=== PATIENT | male | born 1945 | race Caucasian/White ===

== ENCOUNTER → 2017-12-25 08:30 | Outpatient (CLI) | payer MEDICARE, OTHER, SELFPAY ==
[2017-12-25 09:02] LABS: Cholesterol 124 mg/dL (140-199); HDL Cholesterol 44 mg/dL (40-60); LDL Cholesterol Calculated 57 mg/dL (<100); Triglycerides 115 mg/dL (35-150)
== END ==
PROVIDERS: Visit Provider Internal Medicine Cardiovascular Disease
DX: I25.10 Atherosclerotic heart disease of native coronary artery without angina pectoris (principal)
CPT/HCPCS: 36415; 80061

== ENCOUNTER → 2019-03-25 08:35 | Outpatient (CLI) | payer MEDICARE, OTHER, SELFPAY ==
[2019-03-25 09:57] LABS: Add Manual Diff / Slide Review NO; Basophils Absolute Auto 100 /uL (0-100); Eosinophils Absolute Auto 200 /uL (0-450); Eosinophils Percent Auto 3.1 % (2-4); Hematocrit 44.2 % (41-53); Hemoglobin 14.9 g/dL (13.5-17.5); Lymphocytes Absolute Auto 2500 /uL (1100-4500); Lymphocytes Percent Auto 36.2 % (25-40); Mean Corpuscular HGB Conc 33.8 % (30-36); Mean Corpuscular Hemoglobin 29.7 PG (26-34); Mean Corpuscular Volume 87.9 fL (80-100); Monocytes Absolute Auto 600 /uL (0-900); Monocytes Percent Auto 9.1 % (3-14); Neutrophils Absolute Auto 3500 /uL (1500-7000); Neutrophils Percent Auto 50.6 % (50-75); Platelet Count 226 X10^3/uL (150-400); Red Blood Cell Count 5.02 X10^6/uL (4.5-5.9); Red Cell Distribution Width 13.6 % (11.6-14.8); White Blood Cell Count 6.9 X10^3/uL (4.5-11.0)
[2019-03-25 10:08] LABS: Alanine Aminotransferase 35 IU/L (21-72); Albumin 4.5 g/dL (3.5-5.0); Albumin Globulin Ratio 1.4 (1.0-2.8); Alkaline Phosphatase 54 U/L (38-126); Aspartate Aminotransferase 33 IU/L (17-59); BUN Creatinine Ratio 14.4 (6-22); Bilirubin Total 1.1 mg/dL (0.2-1.3); Blood Urea Nitrogen 13 mg/dL (9-20); Calcium 9.4 mg/dL (8.4-10.2); Carbon Dioxide 28 mmol/L (22-32); Chloride 103 mmol/L (98-107); Estimated Glomerular Filt Rate > 60.0 mL/min (>60); Globulin 3.2 g/dL (1.7-4.1); Glucose 99 mg/dL (80-110); HEMOLYSIS 17 (0-50); Potassium 4.5 mmol/L (3.4-5.1); Sodium 139 mmol/L (137-145); Total Protein 7.7 g/dL (6.3-8.2)
== END ==
PROVIDERS: Visit Provider Internal Medicine Cardiovascular Disease
DX: I25.10 Atherosclerotic heart disease of native coronary artery without angina pectoris (principal)
CPT/HCPCS: 36415; 80053; 85025

== ENCOUNTER → 2019-05-02 06:50 | Outpatient (CLI) | payer MEDICARE, OTHER, SELFPAY ==
--- NOTE | 2019-05-02 | DI.ECHO.S_ITS ---
[place] [facility]---------+ [facility] +---------+ : : [address] : : : : [id number] : : : : Phone: [phone]+ Echocardiogram Report + + :Name: NEREIDA BURKS Study Date: 05/02/2019 Height: 70 in : :[facility] Weight: 242 lb : : Gender: Male BSA: 2.3 m2 : :: 1945 Age: 73 yrs BP: 112/72 mmHg: :Reason For Study: Aortic valve stenosis : :Ordering Physician: Rickie : :Morris Omer Performed By: Angelia Juan : :Referring: Dr. Steve Mcclendon : + + Interpretation Summary The ejection fraction is estimated to be 60-65%. There is severe biatrial enlargement. There is moderate aortic valve sclerosis. There is moderately reduced leaflet mobility. The calculated aortic valve area is 1.4 cm2. There is mild tricuspid regurgitation. Procedure: A two-dimensional transthoracic echocardiogram with color flow and Doppler was performed. The study quality was technically adequate. There is no prior echocardiogram noted for this patient. The patient was in atrial fibrillation with heart rates between 66-77 bpm during the exam. Left Ventricle: The left ventricle is normal in size, wall thickness, and systolic function without any focal wall motion abnormalities. The ejection fraction is estimated to be 60-65%. Left ventricular wall motion is normal. Diastolic function could not be accurately assessed due to atrial fibrillation. Right Ventricle: The right ventricle grossly appears normal in size with probable normal systolic function. Atria: The left atrium is severely dilated. There is severe biatrial enlargement. The right atrium is severely dilated. The interatrial septum is intact with no evidence for an atrial septal defect. Mitral Valve: The mitral valve leaflets appear mildly thickened, but open well. There is trace mitral regurgitation. Aortic Valve: There is moderate aortic valve sclerosis. There is moderately reduced leaflet mobility. The calculated aortic valve area is 1.4 cm2. The aortic valve area is 1.4 centimeters squared by planimetry. The peak aortic velocity is 2.4 m/sec. The aortic valve mean gradient is 12 mmHg. Severity ratio is 0.38. No aortic regurgitation is present. Tricuspid Valve: The tricuspid valve leaflets are thin and pliable. There is mild tricuspid regurgitation. Pulmonic Valve: The pulmonic valve is not well seen, but is grossly normal. There is mild pulmonic regurgitation. Great Vessels: The aortic root is normal size. The ascending aorta is mildly enlarged. The aortic arch is at the upper limits of normal in size. The IVC is of normal diameter and collapses greater than 50% with a sniff. This suggests a low right atrial pressure of 3 mm Hg. Pericardium/ Pleura There is no pericardial effusion. There is no pleural effusion. MMode/2D Measurements & Calculations LVIDd: 4.4 cm LVOT diam: 2.2 cm LVIDs: 2.6 cm Ao root diam: 3.5 cm FS: 42.5 % Aortic Jxn: 2.8 cm EPSS: 0.43 cm asc Aorta Diam: 3.8 cm IVSd: 0.88 cm Ao Arch Diam (Prox Trans): 3.1 cm LVPWd: 1.0 cm LV guzman. diameter/BSA (cm/m^2): 2.0 LV sys. diameter/BSA (cm/m^2): 1.1 LA dimension: 5.2 cm RA long axis: 6.2 cm LA A2 area: 37.3 cm2 RA area: 29.5 cm2 LA A4 area: 30.9 cm2 RA vol: 119.3 ml LA length (vol): 6.6 cm RA : 52.7 ml/m2 LA vol: 148.6 ml IVC diam: 1.7 cm LA vol index: 65.6 ml/m2 RVDd major: 6.5 cm RVD1 (basal): 5.1 cm RVD2 (mid): 3.6 cm DIONTE (plan): 1.3 cm2 Doppler Measurements & Calculations Ao V2 max: 238.2 cm/sec LVOT Max Yasir: 89.1 cm/sec Ao V2 mean: 166.7 cm/sec LV V1 max P.2 mmHg Ao max P.7 mmHg LV V1 VTI: 21.0 cm Ao mean P.4 mmHg DIONTE(I,D): 1.4 cm2 Ao V2 VTI: 54.5 cm DIONTE(V,D): 1.4 cm2 sev ratio: 0.38 DIONTE indexed to BSA (cm^2/m^2): 0.63 Med Peak E' Yasir: 7.7 cm/sec TR max yasir: 277.3 cm/sec Lat Peak E' Yasir: 11.8 cm/sec TR max P.8 mmHg MV P1/2t: 61.3 msec PA V2 max: 87.9 cm/sec MVA(VTI): 4.9 cm2 PA V2 mean: 51.4 cm/sec PA mean P.3 mmHg PA Accel Time: 0.07 sec MV V2 mean: 57.9 cm/sec MV P1/2t max yasir: 114.9 cm/sec MV mean P.9 mmHg MVA(P1/2t): 3.6 cm2 MV V2 VTI: 15.7 cm SV(LVOT): 77.8 ml Reading Physician:04:02 PM
== END ==
PROVIDERS: Family Provider Internal Medicine; PCP Internal Medicine; Visit Provider Hospitalist
DX: I08.2 Rheumatic disorders of both aortic and tricuspid valves (principal)
CPT/HCPCS: 93306

== ENCOUNTER → 2020-04-20 07:52 | Outpatient (CLI) | payer MEDICARE, OTHER, SELFPAY ==
[2020-04-20 09:30] LABS: Add Manual Diff / Slide Review NO; Basophils Absolute Auto 100 /uL (0-100); Basophils Percent Auto 0.8 % (0-2); Eosinophils Absolute Auto 200 /uL (0-450); Eosinophils Percent Auto 3.4 % (2-4); Hematocrit 43.8 % (41-53); Hemoglobin 14.7 g/dL (13.5-17.5); Lymphocytes Absolute Auto 2800 /uL (1100-4500); Lymphocytes Percent Auto 44.3 % (25-40); Mean Corpuscular HGB Conc 33.5 % (30-36); Mean Corpuscular Volume 89.6 fL (80-100); Monocytes Absolute Auto 700 /uL (0-900); Monocytes Percent Auto 10.4 % (3-14); Neutrophils Absolute Auto 2600 /uL (1500-7000); Neutrophils Percent Auto 41.1 % (50-75); Platelet Count 197 X10^3/uL (150-400); Red Blood Cell Count 4.89 X10^6/uL (4.5-5.9); Red Cell Distribution Width 13.9 % (11.6-14.8); White Blood Cell Count 6.4 X10^3/uL (4.5-11.0)
[2020-04-20 10:12] LABS: BUN Creatinine Ratio 17.2 (6-22); Blood Urea Nitrogen 16 mg/dL (9-20); Calcium 9.5 mg/dL (8.4-10.2); Carbon Dioxide 30 mmol/L (22-32); Chloride 104 mmol/L (98-107); Cholesterol 129 mg/dL (140-199); Estimated Glomerular Filt Rate > 60.0 mL/min (>60); Glucose 101 mg/dL (80-110); HDL Cholesterol 47 mg/dL (40-60); HEMOLYSIS < 15 (0-50); LDL Cholesterol Calculated 62 mg/dL (<100); Potassium 4.7 mmol/L (3.4-5.1); Sodium 138 mmol/L (137-145); Triglycerides 99 mg/dL (35-150)
[2020-04-20 10:43] LABS: Thyroid Stimulating Hormone 2.87 uIU/mL (0.47-4.68)
== END ==
PROVIDERS: Family Provider Internal Medicine; PCP Internal Medicine; Referring Provider Nurse Practitioner; Visit Provider Nurse Practitioner
DX: I25.10 Atherosclerotic heart disease of native coronary artery without angina pectoris (principal); E78.5 Hyperlipidemia, unspecified
CPT/HCPCS: 36415; 80048; 80061; 84443; 85025

== ENCOUNTER 2021-02-24 11:19 | Emergency (ER) | payer MEDICARE, OTHER, SELFPAY ==
[2021-02-24 11:23] VITALS: BP 149/81; PULSE 85; RESP 15; TEMP 36.9; O2SAT 99; BMI 35.2
[2021-02-24 11:54] LABS: Add Manual Diff / Slide Review NO; Basophils Absolute Auto 100 /uL (0-100); Basophils Percent Auto 0.7 % (0-2); Eosinophils Absolute Auto 200 /uL (0-450); Eosinophils Percent Auto 1.1 % (2-4); Hematocrit 45.8 % (41-53); Hemoglobin 15.1 g/dL (13.5-17.5); Lymphocytes Absolute Auto 4000 /uL (1100-4500); Lymphocytes Percent Auto 28.3 % (25-40); Mean Corpuscular Hemoglobin 29.7 PG (26-34); Mean Corpuscular Volume 90.1 fL (80-100); Monocytes Absolute Auto 1500 /uL (0-900); Monocytes Percent Auto 10.5 % (3-14); Neutrophils Absolute Auto 8300 /uL (1500-7000); Neutrophils Percent Auto 59.4 % (50-75); Platelet Count 231 X10^3/uL (150-400); Red Blood Cell Count 5.08 X10^6/uL (4.5-5.9); Red Cell Distribution Width 13.5 % (11.6-14.8)
[2021-02-24 12:07] LABS: INR 1.6 (0.9-1.3); Prothrombin Time 18.7 SECONDS (10.1-12.7)
[2021-02-24 12:10] LABS: PTT Partial Thromboplastin Tim 63 SECONDS (26.4-36.2)
[2021-02-24 12:11] LABS: Alanine Aminotransferase 28 IU/L (<50); Albumin 4.8 g/dL (3.5-5.0); Albumin Globulin Ratio 1.3 (1.0-2.8); Alkaline Phosphatase 70 U/L (38-126); Aspartate Aminotransferase 28 IU/L (17-59); BUN Creatinine Ratio 15.1 (6-22); Bilirubin Total 1.4 mg/dL (0.2-1.3); Blood Urea Nitrogen 14 mg/dL (9-20); Calcium 9.5 mg/dL (8.4-10.2); Carbon Dioxide 30 mmol/L (22-32); Chloride 102 mmol/L (98-107); Estimated Glomerular Filt Rate > 60.0 mL/min (>60); Globulin 3.8 g/dL (1.7-4.1); Glucose 105 mg/dL (80-110); HEMOLYSIS 18 (0-50); Lipase 107 U/L (23-300); Potassium 4.1 mmol/L (3.4-5.1); Sodium 139 mmol/L (137-145); Total Protein 8.6 g/dL (6.3-8.2)
[2021-02-24 13:36] VITALS: PULSE 79; O2SAT 96
--- NOTE | 2021-02-24 13:37 | PC.NURSE ---
Patient c/o abd pain x 1.5 days. States abdomen as well as LLQ & LRQ is tenderness. Patient concerned this might be appendicitis. C/O fever yesterday with chills, today's temp = 98.5 Denies N/V/D.
--- NOTE | 2021-02-24 13:40 | PC.NURSE ---
Patient c/o LLQ/LRQ abdominal pain and tenderness. States fever (101) yesterday am with chills. Today's temp 98.5, no chills in past 24hrs. Last BM this am, states bowels & urine normal. Denies N/V/D, c/o lack of appetite. Nothing to eat today, has had coffee and water.
[2021-02-24 14:00] VITALS: BP 138/76; PULSE 90; O2SAT 94
--- NOTE | 2021-02-24 14:09 | ED.ABDPAIN ---
HPI - Abdominal Pain General Chief Complaint: Abdominal Pain Stated Complaint: Abd intermittent pain x2 days Time Seen by Provider: 02/24/21 14:08 Source: patient Mode of arrival: Ambulatory Limitations: no limitations History of Present Illness HPI narrative: This is a 75-year-old male who comes with complaint of intermittent lower abdominal pain for the past 2 days. Patient notes he has also had a temperature up to 101 F in the last 24 hours. His recheck was normalized after several hours. Patient denies any nasal congestion, cough or cold. He denies any chest pain or shortness of breath. He denies any nausea or vomiting he states he has had bowel movements without any black or blood. He denies any dysuria, urgency or frequency. He denies any back or flank pain. He denies any prior intra-abdominal surgeries he states he does still have his appendix. He is on Xarelto daily, atenolol, rosuvastatin, Flomax and finasteride. Patient denies any allergies to medications. He denies any tobacco. He does he drink alcohol regularly during the week, he denies any illicit. Patient states he is vaccinated for COVID. Related Data Home Medications Medication Instructions Recorded Confirmed atenolol 100 mg tablet #0 11/22/16 finasteride 5 mg tablet #0 11/22/16 rivaroxaban 20 mg tablet (Xarelto) #0 11/22/16 rosuvastatin 40 mg tablet (Crestor) 40 mg PO QDAY #0 11/22/16 tamsulosin 0.4 mg capsule (Flomax) 0.4 mg PO QDAY #0 02/08/17 Previous Rx's Medication Instructions Recorded amoxicillin 875 mg-potassium 1 tab PO Q12H #20 tab 02/24/21 clavulanate 125 mg tablet (Augmentin) Allergies Allergy/AdvReac Type Severity Reaction Status Date / Time No Known Drug Allergies Allergy Verified 02/24/21 11:23 Review of Systems Review of Systems ROS Unobtainable: All systems reviewed & are unremarkable except as noted in HPI and below Patient History Social History Smoking Status: Unknown if ever smoked Smoking Status: Unknown if ever smoked alcohol intake frequency: a few times a week Substance Use Type: does not use Exam Narrative Exam Narrative: GENERAL: Alert and oriented x three, male in mild distress. HEENT: Head normocephalic, atraumatic, EOMI, pupils reactive, face symmetric, moist mucous membranes NECK: Supple, full range of motion CARDIOVASCULAR: Regular rate and rhythm without murmurs, rubs or gallops. RESPIRATORY: Breath sounds equal bilaterally, no wheezes rales or rhonchi. ABDOMEN: Soft, right lower quadrant tenderness but patient has moderate left lower quadrant tenderness on exam. Bowel sounds all 4 quadrants. No guarding or rebound, rigidity, no mass, no distension. : No CVA tenderness EXTREMITIES: Normal range of motion, no clubbing or edema. Neurovascularly intact NEUROLOGICAL: Cranial nerves II through XII grossly intact. Moving all extremities. Normal gait. SKIN: Warm, dry, no petechiae, no rashes or lesions. Initial Vital Signs Initial Vital Signs: Vital Signs Temperature 98.4 F 02/24/21 11:23 Pulse Rate 85 02/24/21 11:23 Respiratory Rate 15 02/24/21 11:23 Blood Pressure 149/81 H 02/24/21 11:23 Pulse Oximetry 99 02/24/21 11:23 Course Orders Ordered: ED Orders 02/24/21 11:30 Complete Blood Count AUTO DIFF Stat Comprehensive Metabolic Panel Stat Lipase Stat Partial Thromboplastin Time Stat Prothrombin Time INR Stat 02/24/21 15:29 CT abdomen pelvis w con Stat Vital Signs Vital signs: Vital Signs - 8 hr 02/24/21 13:36 02/24/21 14:00 02/24/21 14:30 Pulse Rate 79 90 73 Blood Pressure 138/76 123/58 L Pulse Oximetry 96 94 97 02/24/21 15:00 Pulse Rate 84 Blood Pressure 132/69 Pulse Oximetry 98 MDM - Abdominal Pain Lab Data Result diagrams: 02/24/21 11:30 02/24/21 11:30 Labs: Lab Results 02/24/21 02/24/21 02/24/21 Range/Units 11:30 11:30 11:30 WBC 14.0 H (4.5-11.0) X10^3/uL RBC 5.08 (4.5-5.9) X10^6/uL Hgb 15.1 (13.5-17.5) g/dL Hct 45.8 (41-53) % MCV 90.1 (80-100) fL MCH 29.7 (26-34) PG MCHC 33.0 (30-36) % RDW 13.5 (11.6-14.8) % Plt Count 231 (150-400) X10^3/uL Neut % (Auto) 59.4 (50-75) % Lymph % (Auto) 28.3 (25-40) % [place] % (Auto) 10.5 (3-14) % Eos % (Auto) 1.1 L (2-4) % Baso % (Auto) 0.7 (0-2) % Neut # (Auto) 8300 H (1377-9686) /uL Lymph # (Auto) 4000 (4743-1379) /uL [place] # (Auto) 1500 H (0-900) /uL Eos # (Auto) 200 (0-450) /uL Baso # (Auto) 100 (0-100) /uL PT 18.7 H (10.1-12.7) SECONDS INR 1.6 H (0.9-1.3) APTT 63 H (26.4-36.2) SECONDS Sodium 139 (137-145) mmol/L Potassium 4.1 (3.4-5.1) mmol/L Chloride 102 (98-107) mmol/L Carbon Dioxide 30 (22-32) mmol/L BUN 14 (9-20) mg/dL Creatinine 0.93 (0.66-1.25) mg/dL Estimated GFR > 60.0 (>60) mL/min BUN/Creatinine Ratio 15.1 (6-22) Glucose 105 (80-110) mg/dL Calcium 9.5 (8.4-10.2) mg/dL Total Bilirubin 1.4 H (0.2-1.3) mg/dL AST 28 (17-59) IU/L ALT 28 (<50) IU/L Alkaline Phosphatase 70 (38-126) U/L Total Protein 8.6 H (6.3-8.2) g/dL Albumin 4.8 (3.5-5.0) g/dL Globulin 3.8 (1.7-4.1) g/dL Albumin/Globulin Ratio 1.3 (1.0-2.8) Lipase 107 (23-300) U/L Point of care testing: Urine Dip Bedside Urine Glucose Negative Bedside Urine Bilirubin - Negative Bedside Urine Ketone +/- 5 Urine Specific [place] 1.030 Bedside Urine Occult Blood ++ Bedside Urine pH 6.0 Bedside Urine Protein +/- 15 Bedside Urine Urobilinogen 0.2 Bedside Urine Nitrite - Negative Bedside Urine Leukocytes + [address] scan - abdomen/pelvis: Radiologist's Impression: [address] [address] [address] Scan Report Signed Patient: Rashaad Sheffield MR#: [id number] : 1945 Acct:[id number] Age/Sex: 75 / M Date of Service: 02/24/21 Loc: ED Accession Number: [id number] ?? Procedure: CT abdomen pelvis w con Ordering Provider: Brook Griffin D.O. PROCEDURE:? CT ABDOMEN PELVIS W CON ? INDICATIONS:? abd pain, fever, LLQ, diverticulitis ? ? TECHNIQUE:? After the administration of oral and IV contrast, axial sections were acquired from the lung bases to the pubic symphysis.? Coronal and sagittal reformats were performed.? For radiation dose reduction, the following was used:? automated exposure control, adjustment of mA and/or kV according to patient size. ? COMPARISON:? None. ? FINDINGS:? Image quality:? Excellent.? ? Lung bases:? No pleural effusion. Heart:? Aortic valvular calcification.? Heart size appears somewhat prominent.? No pericardial effusion. ? ? ABDOMEN: Liver:? No focal lesion. Gallbladder:? Unremarkable.? ? Biliary ducts:? Unremarkable.? ? Pancreas:? Unremarkable.? ? Spleen:? Unremarkable.? ? Adrenal Glands:? Unremarkable.? ? Kidneys and Ureters:? No hydronephrosis.? Simple cyst in the right kidney measuring 2.1 cm.? ? ? Stomach and Bowel:? Sigmoid colon diverticuli.? There is acute inflammation surrounding the sigmoid colon, ().? No abscess.? No extraluminal gas.? There is bowel wall thickening.? No small bowel obstruction.? Normal appendix. Peritoneum:? No abnormal intraperitoneal fluid.? No free air.? ? Ventral Wall: ? No hernia.? Abdominal Nodes:? No retroperitoneal or mesenteric adenopathy by size criteria.? Vessels:? Aorta and inferior vena cava are normal in size.? Circumferential calcified atherosclerotic plaque.? ? PELVIS: Pelvic Organs:? Prostatomegaly.? Prostate calcifications.? ? Bladder:? Unremarkable.? ? Pelvic Nodes: No enlarged lymph nodes.? Miscellaneous: No inguinal hernias are seen. ? ? ? Bones:? Unremarkable.? IMPRESSION:? 1. Acute sigmoid colon diverticulitis.? No abscess.? -Recommend follow-up colonoscopy if not recently performed. ? 2. Prostatomegaly. ? ? Comment: Findings were discussed with Brook Griffin at the time of dictation. ? ? Dictated by: Wayne Carrillo M.D. on 02/24/2021 at 15:20 ? ? Approved by: Wayne Carrillo M.D. on 02/24/2021 at 15:26?? MDM Narrative Medical decision making narrative: 75-year-old male with intermittent abdominal pain and temperature of 101? F documented at home with no other symptoms. Patient has left lower quadrant tenderness making me suspicious for diverticulitis. Patient does have some cassette of stress in his urine negative. CT shows uncomplicated diverticulitis and patient has leukocytosis of 14 otherwise reassuring vital signs. Discussed her findings with patient. He does alcohol somewhat regularly during weeks we elected for Augmentin b.i.d.. Patient is going to take a probiotic and continue his normal medications. He is comfortable with just Tylenol at this time for pain control and return precautions were discussed. Discharge Plan Departure Patient Disposition: Home Clinical Impression: Diverticulitis Instructions: DI for Diverticulitis Activity Restrictions/Additional Instructions: Follow-up with your physician in the next week for recheck if your symptoms have not completely resolved. Take antibiotics until they are completely gone. Prescription sent to [facility]. You may take Tylenol up to a 1000 mg every 8 hours as needed for pain. It may also be helpful to take a probiotic once daily as you are on antibiotics. Please return for fevers that are persistent beyond 24-48 hours, worsening abdominal, back or flank pain, black or bloody stools, persistent vomiting, lightheadedness or passing out, new chest pain or shortness of breath or other new or concerning symptoms. Prescriptions: New amoxicillin-pot clavulanate [Augmentin] 875-125 mg tablet 1 tab PO Q12H Qty: 20 RF: 0 No Action atenolol 100 MG tablet Qty: 0 RF: 0 rosuvastatin [Crestor] 40 MG tablet 40 mg PO QDAY Qty: 0 RF: 0 finasteride 5 MG tablet Qty: 0 RF: 0 rivaroxaban [Xarelto] 20 MG tablet Qty: 0 RF: 0 tamsulosin [Flomax] 0.4 MG capsule,extended release 24hr 0.4 mg PO QDAY Qty: 0 RF: 0 Referrals: Steve Mcclendon MD [Primary Care Provider] -
[2021-02-24 14:30] VITALS: BP 123/58; PULSE 73; O2SAT 97
[2021-02-24 15:00] VITALS: BP 132/69; PULSE 84; O2SAT 98
--- NOTE | 2021-02-24 15:29 | DI.CT.S_ITS ---
PROCEDURE: CT ABDOMEN PELVIS W CON INDICATIONS: abd pain, fever, LLQ, diverticulitis ? TECHNIQUE: After the administration of oral and IV contrast, axial sections were acquired from the lung bases to the pubic symphysis. Coronal and sagittal reformats were performed. For radiation dose reduction, the following was used: automated exposure control, adjustment of mA and/or kV according to patient size. COMPARISON: None. FINDINGS: Image quality: Excellent. Lung bases: No pleural effusion. Heart: Aortic valvular calcification. Heart size appears somewhat prominent. No pericardial effusion. ABDOMEN: Liver: No focal lesion. Gallbladder: Unremarkable. Biliary ducts: Unremarkable. Pancreas: Unremarkable. Spleen: Unremarkable. Adrenal Glands: Unremarkable. Kidneys and Ureters: No hydronephrosis. Simple cyst in the right kidney measuring 2.1 cm. Stomach and Bowel: Sigmoid colon diverticuli. There is acute inflammation surrounding the sigmoid colon, (3/). No abscess. No extraluminal gas. There is bowel wall thickening. No small bowel obstruction. Normal appendix. Peritoneum: No abnormal intraperitoneal fluid. No free air. Ventral Wall: No hernia. Abdominal Nodes: No retroperitoneal or mesenteric adenopathy by size criteria. Vessels: Aorta and inferior vena cava are normal in size. Circumferential calcified atherosclerotic plaque. PELVIS: Pelvic Organs: Prostatomegaly. Prostate calcifications. Bladder: Unremarkable. Pelvic Nodes: No enlarged lymph nodes. Miscellaneous: No inguinal hernias are seen. Bones: Unremarkable. IMPRESSION: 1. Acute sigmoid colon diverticulitis. No abscess. -Recommend follow-up colonoscopy if not recently performed. 2. Prostatomegaly. Comment: Findings were discussed with Brook Griffin at the time of dictation. Dictated by: Wayne Carrillo M.D. on 02/24/2021 at 15:20 Approved by: Wayne Carrillo M.D. on 02/24/2021 at 15:26
== END 2021-02-24 16:56 | disposition home or self-care (01) ==
PROVIDERS: Emergency Provider Emergency Medicine; Family Provider Internal Medicine; PCP Internal Medicine
DX: K57.92 Diverticulitis of intestine, part unspecified, without perforation or abscess without bleeding (principal); R50.9 Fever, unspecified
CPT/HCPCS: 36415; 74177; 80053; 81003; 83690; 85025; 85610; 85730; 99283; 99284; Q9967

== ENCOUNTER → 2021-04-19 13:45 | Outpatient (CLI) | payer MEDICARE, OTHER, SELFPAY ==
--- NOTE | 2021-04-19 | DI.ECHO.S_ITS ---
Version: 1 Study ID: [id number] [address] [place] [address] Name: NEREIDA BURKS Study Date: 04/19/2021, 3: 04 PM : 1945 BP: 138 / 74 mmHg Gender: Male Height: 70 in Age: 75 Years Weight: 240 lb BSA: 2.26 mA? Ordering: KAYY BALLESTEROS Referring: UNSPECIFIED Clinician: Candace Cabello Reason For Study: ATHEROSCLEROTIC HEART DISEASE History: Summary Statements Afib with controlled rate. Normal LV size and wall thickness; normal wall motion and LV systolic function. EF is 60-65%. Severe LA enlargement; mild RA enlargement. Aortic valve is a trileaflet structure. Leaflets are moderately thickened and mildly calcified. Right coronary leaflet demonstrates good mobility; left and non-coronary leaflets are functionally fused and immobile. There is moderate aortic stenosis with peak velocity of 2.8 m/sec and mean gradient of 17 mm Hg. Mitral valve leaflets are mildly thickened (especially the anterior leaflet) with mild associated MAC. Mild TR with estimated PA systolic pressure of 42mm Hg assuming RA pressure of 8 mm Hg. Compared to prior study in 2019 no significant changes have occurred. Procedure: A two-dimensional transthoracic echocardiogram with color flow and Doppler was performed. The study quality was technically adequate. Comparison is made with the echocardiogram of 05/02/2018. The patient was in atrial fibrillation with heart rates between 54-72 bpm during the exam. Left Ventricle: The left ventricle is normal in size and wall thickness. The ejection fraction is estimated to be 60-65%. Right Ventricle: The right ventricle is normal in size and function. Atria: The left atrium is severely dilated. The right atrium is mildly dilated. There is no Doppler evidence for an interatrial shunt. Mitral Valve: The mitral valve leaflets appear mildly thickened, but open well. There is mild mitral annular calcification. There is mild mitral regurgitation. Aortic Valve: The aortic valve is mildly calcified. The peak aortic velocity is 2.75 m/sec. The aortic valve mean gradient is 17 mmHg. The calculated aortic valve area is 1.3 cm2. There is trace aortic regurgitation. Tricuspid Valve: The tricuspid valve leaflets are thin and pliable. There is mild tricuspid regurgitation. The right ventricular systolic pressure is estimated to be at least 42 mmHg based on an estimated right atrial pressure of 8 mm Hg. Pulmonic Valve: The pulmonic valve is not well visualized. There is mild to moderate pulmonic regurgitation. Great Vessels: The aortic root is normal size. The dimensions of the ascending aorta are normal. The IVC is dilated (diameter is greater than 2.1 cm) yet it collapses greater than 50% with a sniff. This suggests a right atrial pressure of 8 mm Hg. Pericardium/ Pleura: There is no pericardial effusion. There is no pleural effusion. 2D and M-Mode Measurements and Calculations LVIDd: 4.4 cm LVOT diam: 2.05 cm LVIDs: 3.1 cm Ao root diam: 3.4 cm IVSd: 1.06 cm asc Aorta Diam: 3.0 cm LVPWd: 1.02 cm Ao Arch Diam (Prox Trans): 2.9 cm LV guzman. diameter/BSA (cm/m^2): 1.96 LV sys. diameter/BSA (cm/m^2): 1.39 RVD1 (basal): 3.8 cm IVC diam: 2.6 cm TAPSE: 1.76 cm LA A4 area: 27.8 cogeneration operator? RA area: 25.2 cogeneration operator? LA A2 area: 30.2 cogeneration operator? RA long axis: 7.5 cm LA length (vol): 6.4 cm RA vol: 72.0 ml LA vol: 110.3 ml RA : 31.9 ml/mA? LA vol index: 48.9 ml/mA? Doppler Measurements and Calculations Ao V2 max: 275.3 cm/sec LVOT Max Yasir: 103.9 cm/sec Ao V2 mean: 175.0 cm/sec LV V1 max P.3 mmHg Ao V2 VTI: 62.9 cm LV V1 VTI: 24.0 cm Ao max P.3 mmHg Ao mean P.6 mmHg DIONTE(I,D): 1.26 cogeneration operator? DIONTE(V,D): 1.25 cogeneration operator? DIONTE indexed to BSA (cm^2/m^2): 0.56 sev ratio: 0.38 MV E max yasir: 123.8 cm/sec MV dec time: 0.14 sec MV A max yasir: 2.07 cm/sec MV E/A: 59.8 Med Peak E' Yasir: 10.8 cm/sec Lat Peak E' Yasir: 9.3 cm/sec E/e' average: 12.4 TR max yasir: 293.2 cm/sec PA mean P.96 mmHg TR max P.4 mmHg PA V2 max: 99.4 cm/sec Electronically signed by: Cathy Torres M.D. 04/22/2021, 7: 02 AM
== END ==
PROVIDERS: Family Provider Internal Medicine; PCP Internal Medicine; Referring Provider Nurse Practitioner; Visit Provider Nurse Practitioner
DX: I08.1 Rheumatic disorders of both mitral and tricuspid valves (principal); I25.10 Atherosclerotic heart disease of native coronary artery without angina pectoris; I48.20 Chronic atrial fibrillation, unspecified
CPT/HCPCS: 93306

== ENCOUNTER → 2021-05-09 10:04 | Outpatient (CLI) | payer MEDICARE, OTHER, SELFPAY ==
[2021-05-09 12:13] LABS: Alanine Aminotransferase 37 IU/L (<50); Albumin 4.4 g/dL (3.5-5.0); Albumin Globulin Ratio 1.4 (1.0-2.8); Alkaline Phosphatase 48 U/L (38-126); Aspartate Aminotransferase 36 IU/L (17-59); BUN Creatinine Ratio 12.8 (6-22); Bilirubin Total 0.9 mg/dL (0.2-1.3); Blood Urea Nitrogen 12 mg/dL (9-20); Calcium 9.4 mg/dL (8.4-10.2); Carbon Dioxide 27 mmol/L (22-32); Chloride 106 mmol/L (98-107); Cholesterol 129 mg/dL (140-199); Estimated Glomerular Filt Rate > 60.0 mL/min (>60); Globulin 3.1 g/dL (1.7-4.1); Glucose 95 mg/dL (80-110); HDL Cholesterol 50 mg/dL (40-60); HEMOLYSIS < 15 (0-50); LDL Cholesterol Calculated 56 mg/dL (<100); Potassium 4.6 mmol/L (3.4-5.1); Sodium 142 mmol/L (137-145); Total Protein 7.5 g/dL (6.3-8.2); Triglycerides 115 mg/dL (35-150)
[2021-05-09 12:43] LABS: Thyroid Stimulating Hormone 1.91 uIU/mL (0.47-4.68)
== END ==
PROVIDERS: Family Provider Internal Medicine; PCP Internal Medicine; Referring Provider Internal Medicine Cardiovascular Disease; Visit Provider Internal Medicine Cardiovascular Disease
DX: E78.5 Hyperlipidemia, unspecified (principal); I48.20 Chronic atrial fibrillation, unspecified
CPT/HCPCS: 36415; 80053; 80061; 84443

== ENCOUNTER → 2021-06-21 12:00 | Outpatient (CLI) | payer MEDICARE, OTHER, SELFPAY ==
[2021-06-21 13:57] LABS: COVID19 -Nasal RAPID Negative (Negative)
== END ==
PROVIDERS: Family Provider Internal Medicine; PCP Internal Medicine; Referring Provider Student in an Organized Health Care Education/Training Program; Visit Provider Student in an Organized Health Care Education/Training Program
DX: Z01.812 Encounter for preprocedural laboratory examination (principal); Z20.822 Contact with and (suspected) exposure to COVID-19
CPT/HCPCS: 87635

== ENCOUNTER → 2021-06-21 12:20 | Outpatient (CLI) | payer MEDICARE, OTHER, SELFPAY ==
--- NOTE | 2021-06-22 21:02 | DI.NM.S_ITS ---
DATE OF SERVICE: 06/21/2021 PROCEDURE PERFORMED: Exercise treadmill stress and rest myocardial perfusion imaging with gating to assess ejection fraction and regional wall motion. ORDERING PROVIDER: Dr. Niecy Taylor. INDICATIONS: The patient is a 75-year-old male with chronic atrial fibrillation and previously demonstrated multivessel coronary disease by CT angiography. EXERCISE TREADMILL TESTING: The patient was able to exercise for 7 minutes, 52 seconds on a standard Lambert protocol, suggesting excellent exercise capacity with an DAVID of -37%. He had a normal heart rate and blood pressure response to exercise with a resting heart rate of 69 BPM, increasing to a maximum of 144 BPM (101% of his predicted maximum). He had no chest pain or anginal symptoms. His resting ECG shows atrial fibrillation with frequent PVCs but normal ST segments. With stress, the PVCs resolve and he developed some mild, nonspecific ST- depression in the inferolateral leads that promptly resolved within 1 minute of recovery, and thus is nonspecific. PVCs returned in recovery, but there were no other arrhythmias. At 6 minutes 50 seconds of exercise at a heart rate of 122 BPM, 27.1 millicurie of technetium-99m Myoview was injected and he was imaged 10 minutes later using a gated SPECT acquisition protocol. The day prior while at rest, he had been injected with 25.3 millicuries of technetium-99m Myoview and was imaged 20 minutes later, again using a gated SPECT acquisition protocol. FINDINGS: 1. Raw data: There is fair myocardial tracer uptake without any significant motion artifact. Lung/heart ratio was normal at 0.38 with a normal TID ratio of 0.97. 2. Quantitated gated SPECT: Post-stress ejection fraction is calculated at 57%, although image quality is quite poor, likely due to the atrial fibrillation. There are no obvious focal wall motion abnormality. Resting ejection fraction is estimated at 47%, although, again, the image quality is quite poor and visually the ejection fraction appears similar to the stress ejection fraction. The resting end-diastolic volume is estimated at 88 mL. 3. Myocardial perfusion imaging: Post-stress supine images shows a fairly normal myocardial perfusion pattern without any significant perfusion defects, supported by normal perfusion imaging in the prone position. The resting images show a similar perfusion pattern without any obvious areas of improvement. IMPRESSION: 1. Normal myocardial perfusion study. 2. No evidence for myocardial ischemia or previous myocardial infarction. 3. Possible mildly reduced left ventricular systolic function but image quality is compromised by his atrial fibrillation. Clinical correlation is recommended. 4. Excellent exercise capacity without angina. He has baseline atrial fibrillation and develops modest, nonspecific ST-segment shifts that remain nonspecific given prompt resolution in the recovery. There were occasional PVCs, but no complex ventricular ectopy. Rashaad Sheffield - Gisela/duc doc#: [id number]/job#: [id number] dd: 06/22/2021 17:18:00 dt: 06/22/2021 20:03:00 DICTATING MD/COPIES TO: Joseph Yun MD; Niecy Taylor MD COPIES MNE: MARLI;
== END ==
PROVIDERS: Family Provider Internal Medicine; PCP Internal Medicine; Referring Provider Internal Medicine Cardiovascular Disease; Visit Provider Internal Medicine Cardiovascular Disease
DX: I25.10 Atherosclerotic heart disease of native coronary artery without angina pectoris (principal); I48.20 Chronic atrial fibrillation, unspecified; Z20.822 Contact with and (suspected) exposure to COVID-19
CPT/HCPCS: 78452; 87635; 93017; C9803; A9502

== ENCOUNTER → 2021-06-22 10:35 | Outpatient (CLI) | payer MEDICARE, OTHER, SELFPAY ==
--- NOTE | 2021-06-22 | DI.US.S_ITS ---
PROCEDURE: US CAROTID DOPPLER BI INDICATIONS: Atherosclerotic heart disease of [place] coronary artery with TECHNIQUE: Color and pulse Doppler interrogation was performed of both carotid systems, with image documentation and velocity measurements. COMPARISON: None. FINDINGS: Stenosis calculations are based on SRU (Society of Radiologists in Ultrasound) criteria. The flow velocities and the arterial waveforms are normal within both carotid arterial systems. Atherosclerotic plaque is seen on both sides. The estimated degree of internal carotid artery stenosis is less than 50%. Antegrade flow is confirmed within both vertebral arteries. IMPRESSION: No hemodynamically significant stenosis is seen. Atherosclerotic plaque is noted bilaterally. Dictated by: Mike Vega M.D. on 06/22/2021 at 13:05 Approved by: Mike Vega M.D. on 06/22/2021 at 13:05
== END ==
PROVIDERS: Family Provider Internal Medicine; PCP Internal Medicine; Referring Provider Internal Medicine Cardiovascular Disease; Visit Provider Internal Medicine Cardiovascular Disease
DX: I25.10 Atherosclerotic heart disease of native coronary artery without angina pectoris (principal)
CPT/HCPCS: 93880

== ENCOUNTER → 2021-09-23 14:25 | Outpatient (CLI) | payer MEDICARE, OTHER, SELFPAY ==
[2021-09-23 16:06] LABS: COVID19 -Nasal RAPID Negative (Negative)
== END ==
PROVIDERS: Family Provider Internal Medicine; PCP Internal Medicine; Visit Provider Family Medicine Sleep Medicine
DX: Z20.822 Contact with and (suspected) exposure to COVID-19 (principal)
CPT/HCPCS: 87635; C9803

== ENCOUNTER 2021-09-26 07:19 | Day surgery (SDC) | payer MEDICARE, OTHER, SELFPAY ==
--- NOTE | 2021-09-26 | PATH_ITS ---
[facility] Accession Number: [id number] . 01 Material submitted: . PART A: colon - DESCENDING POLYP PART B: rectum - RECTAL POLYP . 02 Diagnosis: A. Descending Colon Polyp, Biopsy: Tubular adenoma. . B. Rectal Polyp, Biopsy: Tubular adenoma. MRV 09/28/2021 1023 Local . 02 Electronically signed: . Isai Gonsales MD, PhD, Pathologist NPI- [id number] . 01 Gross description: . Part A: DESCENDING POLYP: Received in formalin is 1 fragment(s) of spencer, soft tissue measuring 0.2 x 0.2 x 0.2 cm submitted entirely in 1 cassette(s) Part B: RECTAL POLYP: Received in formalin are 3 fragment(s) of spencer, soft tissue measuring 0.1 x 0.1 x 0.1 cm to 0.2 x 0.2 x 0.2 cm submitted entirely in 1 cassette(s) /CRISTY 09/27/2021 1900 Local . 02 Pathologist provided ICD-10: D12.4, D12.8 . 02 CPT . 897145, 250441 Specimen Comment: A courtesy copy of this report has been sent to [phone] Performed at: 01 [facility] [address] [facility], [place], [place] [id number] MD Osmani Rivera MD Phone: [phone] Performed at: 02 [facility] [address] [place], [place] [id number] MD Cristal Dyson MD Phone: [phone]
[2021-09-26] MEDS: SODIUM CHLORIDE 0.9% 1,000 ML 84 ML IV (07:51)
--- NOTE | 2021-09-26 07:57 | PM.HP.1 ---
History of Present Illness History of Present Illness Date Patient Seen: 09/26/21 Time Patient Seen: 07:57 Chief complaint: SDC Narrative: I reviewed my recent office note. No significant changes. Patient History Family & Social History Tobacco & Substance use: Smoking Status Unknown if ever smoked alcohol intake frequency a few times a week Substance Use Type does not use Meds Home Medications and Allergies Home Medications Medication Instructions Recorded Confirmed Type atenolol 100 mg tablet 100 mg PO DAILY #0 11/22/16 09/26/21 History finasteride 5 mg tablet #0 11/22/16 History rosuvastatin 40 mg tablet (Crestor) 40 mg PO QDAY #0 11/22/16 09/26/21 History tamsulosin 0.4 mg capsule (Flomax) 0.4 mg PO QDAY #0 02/08/17 09/26/21 History apixaban 5 mg tablet (Eliquis) 5 mg PO BID 09/26/21 09/26/21 History Allergies Allergy/AdvReac Type Severity Reaction Status Date / Time No Known Drug Allergies Allergy Verified 02/24/21 11:23 Review of Systems Review of Systems ROS: Yes All systems reviewed with the patient and are negative except as otherwise documented Exam Const General: cooperative and comfortable Orientation: alert HENMT Head: normocephalic Ears: external ears normal Nose: external nose normal Face and sinus: normal facial exam Mouth: oral mucosae normal Eyes General: appearance normal, both eyes and all related structures Neck Neck: normal visual inspection Chest Chest: normal inspection of the chest Resp Effort & Inspection: normal respiratory effort Cardio Rate: regular rate GI Inspection: normal to inspection Skin General: no rashes or lesions noted and No jaundice Neuro General: patient alert and moves all extremities Cognition: normal cognition Speech: speech normal Extrem General: no pedal edema Psych Appearance: grossly normal Assessment & Plan Assessment & Plan narrative: 76-year-old male with a history of diverticulitis in the fall of 2020. Colon cancer screening is therefore pursued today. Time Spent With Patient Critical Care time: I spent a total of [] minutes of critical care time on this patient's care today; this time is exclusive of procedural time.
--- NOTE | 2021-09-26 07:58 | PM.PREOP ---
Pre-operative Note COVID-19 COVID-19 status: Negative Result date/Date tested (Pos, Neg/Pending): 09/23/21 Criteria for continued procedure: Possibility delay results in more complex future surgery or treatment Interval Note History & Physical reviewed/Exam performed by Physician: Yes Changes to H&P: No ASA Class (for procedural sedation): II
[2021-09-26 08:02] VITALS: BP 141/70; PULSE 93; RESP 18; TEMP 36.9; O2SAT 98; BMI 34.4
--- NOTE | 2021-09-26 09:25 | PM.OP.COLON ---
Operative Date/Time/Diagnoses Date of procedure: 09/26/21 Time of procedure: 09:26 Pre-op diagnosis: Colon cancer screening Post-op diagnosis: same Procedure & Clinicians Study performed: Colonoscopy with cold forceps polypectomies Same procedure as scheduled: Yes Indications: Colon cancer screening Surgeon: Sidney Farooq Procedure Notes SCOAP/Timeout: Done Procedure in detail: After the risks and benefits were explained, written and verbal informed consent was obtained. The patient was brought into the procedure room and placed into the left lateral decubitus position. Please see nurse senior maintenance mechanic notes for sedation details. Digital rectal examination was accomplished. The scope was introduced into the patient and advanced under direct visualization to the cecum as identified by the appendiceal orifice and ileocecal valve. The scope was slowly withdrawn to carefully examine the mucosa for any defects or lesions. Comprehensive imaging was accomplished throughout the rectum including the dentate line. The colon was decompressed, the scope was then removed from the patient who tolerated the procedure well. Adult colonoscope Bowel prep adequate Scope withdrawal time: 14 minutes Sedation minutes: 35 Complications: none Impression: There was some mild diverticulosis in the sigmoid. There was a diminutive polyp in the rectum measuring 5 mm removed with cold forceps. There was a 4 mm polyp in the descending colon also removed with cold forceps. No other significant pathology was appreciated throughout. The patient had a slightly tortuous colon. He was in the abdominal breather. He did not tolerate the procedure very well and sedation had to be reduced to allow him to properly protect his airway from aspiration of saliva. Endoscopic diagnosis 1. Diverticulosis 2. Colon polyps Post-procedure Plan for aftercare: 1. Await histopathology. 2. Surveillance colonoscopy would typically be recommended for 7-10 years and is therefore not indicated. 3. Okay to restart Eliquis starting tomorrow. Disposition: PACU
[2021-09-26 09:28] VITALS: BP 132/73; PULSE 87; RESP 16; TEMP 36.6; O2SAT 95
[2021-09-26 09:34] VITALS: BP 119/67; PULSE 72; RESP 16; O2SAT 96
[2021-09-26 09:39] VITALS: BP 116/79; PULSE 79; RESP 16; O2SAT 97
[2021-09-26 09:44] VITALS: BP 118/79; PULSE 79; RESP 18; TEMP 36.6; O2SAT 97
== END 2021-09-26 09:54 | disposition home or self-care (01) ==
PROVIDERS: Family Provider Internal Medicine; PCP Internal Medicine; Referring Provider Internal Medicine Gastroenterology; Visit Provider Internal Medicine Gastroenterology
PROC: 0DJD8ZZ Inspection of Lower Intestinal Tract, Via Natural or Artificial Opening Endoscopic (ICD-10-PCS; CPT 45378; principal; 2021-09-26 08:30)
DX: Z12.11 Encounter for screening for malignant neoplasm of colon (principal); D12.4 Benign neoplasm of descending colon; D12.8 Benign neoplasm of rectum; K57.30 Diverticulosis of large intestine without perforation or abscess without bleeding; I48.91 Unspecified atrial fibrillation; E78.00 Pure hypercholesterolemia, unspecified; I10 Essential (primary) hypertension; Z79.01 Long term (current) use of anticoagulants; Z87.19 Personal history of other diseases of the digestive system
CPT/HCPCS: 45380; J2405; J2704

== ENCOUNTER → 2022-02-06 08:04 | Outpatient (CLI) | payer MEDICARE, OTHER, SELFPAY ==
--- NOTE | 2022-02-06 | DI.CT.S_ITS ---
PROCEDURE: CT IVP A/P W/WO INDICATIONS: MICROSCOPIC HEMATURIA/HX OF GROSS HEMATURIA TECHNIQUE: Optional 5 mm thick noncontrast images acquired from the diaphragm to the symphysis pubis. After the administration of intravenous contrast, 5 mm thick images acquired from the diaphragm to the symphysis pubis after a 10-minute delay. 2 mm thick coronal and sagittal reformats were then performed of the kidneys and ureters. For radiation dose reduction, the following was used: automated exposure control, adjustment of mA and/or kV according to patient size. COMPARISON: Located Within [facility], CT, CT ABDOMEN PELVIS W CON, 02/24/2021, 15:34. FINDINGS: Image quality: Excellent. Lung bases: Lung bases are clear. Heart size is normal. Urinary system: Both kidneys are normal in size, without hydronephrosis or nephrolithiasis on pre-contrast images. No perinephric fat stranding. There is normal bilateral renal enhancement. Bilateral low-density cystic lesions are present. Renal calyces appear normal in morphology when filled with contrast. Opacified portions of both ureters demonstrate normal caliber. Overall bladder wall thickness is normal. There is a questionable exophytic nodule along the superior left aspect of the bladder visualized on the coronal view (series 5/image 65). There are small bilateral bladder diverticula noted. No calcified bladder stones. The prostate has a nodular contour at the dome. Other solid organs: Liver is normal in size and enhancement. Gallbladder is unremarkable. Biliary system is non dilated. Pancreas enhances normally. Spleen is normal in size and enhancement. No adrenal nodules. Peritoneum and bowel: Bowel loops demonstrate normal wall thickness and caliber. The appendix is thin walled and gas filled. There are scattered sigmoid diverticula. No evidence for diverticulitis. No free fluid or air. Nodes and vessels: No retroperitoneal or mesenteric adenopathy by size criteria. There is mild haziness at the mesenteric root which is new when compared to the study dated February 24, 2021. Aorta and inferior vena cava are normal in size. There are scattered atheromatous calcifications throughout the aorta and iliac arteries bilaterally. Abdominal wall: No ventral hernias. Pelvis: No pathologic free pelvic fluid. No inguinal hernias or adenopathy. Bones: No suspicious bony lesions. No vertebral body compression fractures. IMPRESSION: 1. No hydronephrosis, nephrolithiasis, hydroureter, or ureterolithiasis. No suspicious enhancing renal mass lesions. No bladder stones. 2. Questionable small exophytic bladder mass at the left superior aspect of the bladder seen only on coronal view. Differential considerations include small fold in the bladder wall secondary to incomplete distension. Direct visualization could be used to further characterize findings. 3. No acute intra-abdominal findings. Normal appendix. Diverticulosis. No acute diverticulitis. Dictated by: Tressa Hendrickson M.D. on 02/06/2022 at 11:32 Approved by: Tressa Hendrickson M.D. on 02/06/2022 at 11:44
[2022-02-06 09:14] LABS: BUN Creatinine Ratio 21.2 (6-22); Blood Urea Nitrogen 18 mg/dL (9-20); Estimated Glomerular Filt Rate > 60 mL/min (>60)
== END ==
PROVIDERS: Family Provider Internal Medicine; PCP Internal Medicine; Referring Provider Urology; Visit Provider Urology
DX: R31.29 Other microscopic hematuria (principal); Z87.448 Personal history of other diseases of urinary system
CPT/HCPCS: 36415; 74178; 82565; 84520; Q9967

== ENCOUNTER → 2022-07-21 10:12 | Outpatient (CLI) | payer MEDICARE, OTHER, SELFPAY ==
[2022-07-21 11:19] LABS: Hematocrit 43.1 % (41-53); Hemoglobin 14.2 g/dL (13.5-17.5); Mean Corpuscular HGB Conc 32.9 % (30-36); Mean Corpuscular Hemoglobin 30.1 PG (26-34); Mean Corpuscular Volume 91.6 fL (80-100); Platelet Count 207 X10^3/uL (150-400); Red Cell Distribution Width 13.5 % (11.6-14.8); White Blood Cell Count 6.7 X10^3/uL (4.5-11.0)
[2022-07-21 11:31] LABS: Alanine Aminotransferase 41 IU/L (<50); Albumin 4.7 g/dL (3.5-5.0); Albumin Globulin Ratio 1.3 (1.0-2.8); Alkaline Phosphatase 58 U/L (38-126); Aspartate Aminotransferase 35 IU/L (17-59); BUN Creatinine Ratio 18.3 (6-22); Bilirubin Total 0.9 mg/dL (0.2-1.3); Blood Urea Nitrogen 15 mg/dL (9-20); Calcium 8.9 mg/dL (8.4-10.2); Carbon Dioxide 25 mmol/L (22-32); Chloride 104 mmol/L (98-107); Cholesterol 131 mg/dL (140-199); Estimated Glomerular Filt Rate > 60 mL/min (>60); Globulin 3.5 g/dL (1.7-4.1); Glucose 93 mg/dL (80-110); HDL Cholesterol 46 mg/dL (40-60); HEMOLYSIS < 15 (0-50); LDL Cholesterol Calculated 67 mg/dL (<100); Potassium 4.6 mmol/L (3.4-5.1); Sodium 143 mmol/L (137-145); Total Protein 8.2 g/dL (6.3-8.2); Triglycerides 88 mg/dL (35-150)
[2022-07-21 12:00] LABS: Prostate Specific Antigen 0.753 ng/mL (0.10-4.00)
[2022-07-21 12:19] LABS: TSH w/ Reflex to FT4 1.71 uIU/mL (0.47-4.68)
== END ==
PROVIDERS: Family Provider Internal Medicine; PCP Internal Medicine; Referring Provider Internal Medicine; Visit Provider Internal Medicine
DX: E78.2 Mixed hyperlipidemia (principal); N40.1 Benign prostatic hyperplasia with lower urinary tract symptoms; I10 Essential (primary) hypertension; I48.20 Chronic atrial fibrillation, unspecified; Z79.01 Long term (current) use of anticoagulants; N13.8 Other obstructive and reflux uropathy
CPT/HCPCS: 36415; 80053; 80061; 84153; 84443; 85027

== ENCOUNTER → 2022-08-10 12:31 | Outpatient (CLI) | payer MEDICARE, OTHER, SELFPAY ==
--- NOTE | 2022-08-10 | DI.ECHO.S_ITS ---
[facility]---------+ [facility] +---------+ : : [address] : : : : [id number] : : : : Phone: [phone]+ Echocardiogram Report + + :Name: NEREIDA BURKS Study Date: 08/10/2022 Height: 70 in : :[facility] : Weight: 240 lb : : Gender: Male BSA: 2.3 m2 : :: 1945 Age: 77 yrs BP: 142/89 mmHg: :Reason For Study: Nonrheumatic aortic stenosis : :Ordering Physician: Tc : :Dangelo Valdovinos Performed By: Candace Harper : :Referring: TC VALDOVINOS : + + Interpretation Summary The left ventricle is normal in size. The ejection fraction is estimated to be 60-65%. No significant change in LV EF. The right ventricle is normal in size and function. There is mild to moderate mitral regurgitation. Compared to the prior echo study, there has been an increase in the severity of mitral regurgitation. Previously mild MR. The aortic valve is heavily calcified. There is severely reduced leaflet mobility. Peak aortic valve velocity about 3 m/s, mean gradient 19.5 mmHg, calculated aortic valve area about 1.0 switching clerk?, severity ratio 0.32 with stroke-volume index 30.54 mL/mA?. Overall moderate to severe aortic stenosis.Previous aortic valve velocity about 2.75 m/s and mean gradient 13.6 mmHg and aortic valve area 1.26 switching clerk?. There is moderate tricuspid regurgitation. Previously mild TR. Compared to the prior echo exam, there has been an increase in TR severity. The right ventricular systolic pressure is estimated to be at least 52.3 mmHg based on an estimated right atrial pressure of 15 mm Hg. Previously 42 mmHg. Compared to the prior echo exam, there has been an increase in the severity of pulmonary hypertension. Procedure: A two-dimensional transthoracic echocardiogram with color flow and Doppler was performed. The study quality was technically good. There has been no significant change since the previous study. The patient was in atrial fibrillation with heart rates between 58-68 bpm during the exam. Left Ventricle: The left ventricle is normal in size. Proximal septal thickening is noted. There is no echo evidence for significant left ventricular outflow tract obstruction. There is no thrombus. The ejection fraction is estimated to be 60-65%. There are no focal wall motion abnormalities. Diastolic function could not be accurately assessed due to atrial fibrillation. E/E' med: 18.3. Right Ventricle: The right ventricle is normal in size and function. Atria: The left atrium is severely dilated. There has been no significant change since the previous study. The right atrium is severely dilated. Chiari network (normal variant) is noted. There is no Doppler evidence for an interatrial shunt. Mitral Valve: The mitral valve leaflets appear mildly thickened, but open well. The mitral valve leaflets appear to open well. There is mild mitral annular calcification. There is mild to moderate mitral regurgitation. Compared to the prior echo study, there has been an increase in the severity of mitral regurgitation. Aortic Valve: The aortic valve is trileaflet. The aortic valve is heavily calcified. There is severely reduced leaflet mobility. The aortic valve mean gradient is 19.5 mmHg. This is a slight increase compared to the previous study. Peak aortic valve velocity about 3 m/s, mean gradient 19.5 mmHg, calculated aortic valve area about 1.0 switching clerk?, severity ratio 0.32 with stroke- volume index 30.54 mL/mA?. Overall moderate to severe aortic stenosis.Previous aortic valve velocity about 2.75 m/s and mean gradient 13.6 mmHg and aortic valve area 1.26 switching clerk?. There is trace aortic regurgitation. Tricuspid Valve: The tricuspid valve is normal. There is moderate tricuspid regurgitation. The right ventricular systolic pressure is estimated to be at least 52.3 mmHg based on an estimated right atrial pressure of 15 mm Hg. Compared to the prior echo exam, there has been an increase in TR severity. Compared to the prior echo exam, there has been an increase in the severity of pulmonary hypertension. Pulmonic Valve: The pulmonic valve leaflets are thin and pliable; valve motion is normal. There is mild to moderate pulmonic regurgitation. Great Vessels: The aortic root is normal size. The ascending aorta is at the upper limits of normal in size. The pulmonary artery is normal size. The IVC is dilated (diameter is greater than 2.1 cm) and it collapses less than 50% with a sniff. This suggests a high right atrial pressure of 15 mm Hg. Pericardium/ Pleura There is a trivial pericardial effusion noted. There are no echocardiographic or Doppler indications for cardiac tamponade. There is no pleural effusion. MMode/2D Measurements & Calculations LVIDd: 4.5 cm LVOT diam: 2.0 cm LVIDs: 2.9 cm Ao root diam: 3.4 cm FS: 34.8 % asc Aorta Diam: 3.7 cm EPSS: 0.22 cm IVSd: 0.96 cm LVPWd: 1.0 cm LV guzman. diameter/BSA (cm/m^2): 2.0 LV sys. diameter/BSA (cm/m^2): 1.3 LA A2 area: 33.3 cm2 RA long axis: 6.8 cm LA A4 area: 31.9 cm2 RA area: 27.2 cm2 LA length (vol): 7.3 cm RA vol: 91.9 ml LA vol: 122.9 ml RA : 40.7 ml/m2 LA vol index: 54.5 ml/m2 IVC diam: 3.0 cm RVD1 (basal): 3.6 cm TAPSE: 2.0 cm Doppler Measurements & Calculations Ao V2 max: 297.4 cm/sec LVOT Max Yasir: 96.5 cm/sec Ao V2 mean: 208.6 cm/sec LV V1 max P.7 mmHg Ao max P.4 mmHg LV V1 VTI: 22.3 cm Ao mean P.5 mmHg DIONTE(I,D): 1.0 cm2 Ao V2 VTI: 69.3 cm DIONTE(V,D): 1.0 cm2 sev ratio: 0.32 DIONTE indexed to BSA (cm^2/m^2): 0.45 MV E max yasir: 120.7 cm/sec TR max yasir: 305.6 cm/sec Med Peak E' Yasir: 6.6 cm/sec TR max P.3 mmHg E/E' med: 18.3 PA V2 max: 86.8 cm/sec Lat Peak E' Yasir: 10.1 cm/sec PA V2 mean: 59.7 cm/sec E/E' lat: 12.0 PA mean P.6 mmHg E/e' average: 15.1 PA pr(Accel): 46.5 mmHg MVA(VTI): 3.1 cm2 MV V2 mean: 59.4 cm/sec SV(LVOT): 69.9 ml MV mean P.0 mmHg MV V2 VTI: 22.7 cm Reading Physician:04:21 PM
== END ==
PROVIDERS: Family Provider Internal Medicine; PCP Internal Medicine; Referring Provider Internal Medicine Cardiovascular Disease; Visit Provider Internal Medicine Cardiovascular Disease
DX: I08.3 Combined rheumatic disorders of mitral, aortic and tricuspid valves (principal)
CPT/HCPCS: 93306

== ENCOUNTER → 2023-02-16 12:37 | Outpatient (CLI) | payer MEDICARE, OTHER, SELFPAY ==
--- NOTE | 2023-02-16 | DI.ECHO.S_ITS ---
[facility]---------+ [facility] +---------+ : : [address] : : : : [id number] : : : : Phone: [phone]+ Echocardiogram Report + + :Name: NEREIDA BURKS Study Date: 02/16/2023 Height: 70 in : :[facility] ReadingLocation: Weight: 240 lb : : Gender: Male BSA: 2.3 m2 : :: 1945 Age: 77 yrs BP: 134/94 mmHg: :Reason For Study: aortic stenosis : : Performed By: Danica Walden : :Referring: TC VALDOVINOS : + + Interpretation Summary The left ventricle is normal in size. The left ventricular ejection fraction is normal. The ejection fraction is estimated to be 60-65%. There has been no significant change in LVEF since the previous exam. The right ventricle is mildly dilated. The right ventricular systolic function is normal. The aortic valve is heavily calcified. There is severely reduced leaflet mobility. The peak aortic velocity is 3.17 m/sec. The aortic valve mean gradient is 22.5 mmHg. The peak aortic velocity on the previous exam was 2.75 m/sec. sev ratio: 0.30 DIONTE indexed to BSA (cm^2/m^2): 0.53. Stroke-volume index 37.78 ml/mA?. Overall moderate to severe aortic stenosis. There is mild tricuspid regurgitation. Compared to the prior echo exam, there has been a decrease in TR severity. The IVC is dilated (diameter is greater than 2.1 cm) yet it collapses greater than 50% with a sniff. This suggests a right atrial pressure of 8 mm Hg. Procedure: A two-dimensional transthoracic echocardiogram with color flow and Doppler was performed. The study quality was technically adequate. Comparison is made with the echocardiogram of 08/10/2022. The patient was in atrial fibrillation with heart rates between 75-83 bpm during the exam. Left Ventricle: The left ventricle is normal in size. Proximal septal thickening is noted. The estimated left ventricular end diastolic volume is 37.8 ml. There is no thrombus. There is no ventricular septal defect visualized. The ejection fraction is estimated to be 60-65%. The left ventricular ejection fraction is normal. There has been no significant change since the previous exam. There are no focal wall motion abnormalities. Diastolic function could not be accurately assessed due to atrial fibrillation. Right Ventricle: The right ventricle is mildly dilated. The right ventricular systolic function is normal. Atria: Both atria are severely dilated. There has been no significant change since the previous study. Chiari network (normal variant) is noted. There is no Doppler evidence for an interatrial shunt. Mitral Valve: The mitral valve leaflets appear mildly thickened, but open well. There is mild mitral annular calcification. There is no mitral valve stenosis. There is mild mitral regurgitation. Aortic Valve: The aortic valve is trileaflet. The aortic valve is heavily calcified. There is severely reduced leaflet mobility. There is moderate to severe aortic stenosis. The peak aortic velocity on the previous exam was 2.75 m/sec. The peak aortic velocity is 3.17 m/sec. The aortic valve mean gradient is 22.5 mmHg. There is trace aortic regurgitation. Tricuspid Valve: The tricuspid valve is normal in structure and function. There is mild tricuspid regurgitation. Pulmonary artery pressures cannot be estimated because of the lack of a measurable TR jet velocity but the IVC suggests a CVP of around 8 mmHg. Compared to the prior echo exam, there has been a decrease in TR severity. Pulmonic Valve: The pulmonic valve is not well seen, but is grossly normal. There is mild pulmonic regurgitation. Great Vessels: The aortic root is normal size. The ascending aorta is at the upper limits of normal in size. The IVC is dilated (diameter is greater than 2.1 cm) yet it collapses greater than 50% with a sniff. This suggests a right atrial pressure of 8 mm Hg. Pericardium/ Pleura There is no pericardial effusion. There is no pleural effusion. MMode/2D Measurements & Calculations LVIDd: 4.4 cm LVOT diam: 2.3 cm LVIDs: 2.7 cm Ao root diam: 3.4 cm FS: 38.8 % asc Aorta Diam: 3.8 cm IVSd: 1.2 cm LVPWd: 1.0 cm LV guzman. diameter/BSA (cm/m^2): 1.9 LV sys. diameter/BSA (cm/m^2): 1.2 LA A2 area: 32.9 cm2 RA long axis: 9.0 cm LA A4 area: 34.9 cm2 RA area: 38.5 cm2 LA length (vol): 7.7 cm RA vol: 139.9 ml LA vol: 126.0 ml RA : 62.0 ml/m2 LA vol index: 55.9 ml/m2 IVC diam: 2.6 cm RVD1 (basal): 4.8 cm TAPSE: 1.7 cm Doppler Measurements & Calculations Ao V2 max: 317.6 cm/sec LVOT Max Yasir: 94.1 cm/sec Ao V2 mean: 226.5 cm/sec LV V1 max P.5 mmHg Ao max P.4 mmHg LV V1 VTI: 21.8 cm Ao mean P.5 mmHg DIONTE(I,D): 1.2 cm2 Ao V2 VTI: 72.4 cm DIONTE(V,D): 1.2 cm2 sev ratio: 0.30 DIONTE indexed to BSA (cm^2/m^2): 0.53 MV E max yasir: 134.8 cm/sec PA V2 max: 78.8 cm/sec Med Peak E' Yasir: 9.6 cm/sec PA V2 mean: 57.7 cm/sec E/E' med: 14.0 PA mean P.5 mmHg Lat Peak E' Yasir: 9.9 cm/sec PA pr(Accel): 32.8 mmHg E/E' lat: 13.5 E/e' average: 13.8 SV(LVOT): 86.9 ml Reading Physician:02:30 PM
== END ==
PROVIDERS: Family Provider Internal Medicine; PCP Internal Medicine; Referring Provider Internal Medicine Cardiovascular Disease; Visit Provider Internal Medicine Cardiovascular Disease
DX: I08.3 Combined rheumatic disorders of mitral, aortic and tricuspid valves
CPT/HCPCS: 93306

== ENCOUNTER → 2023-07-23 11:01 | Outpatient (CLI) | payer MEDICARE, OTHER, SELFPAY ==
[2023-07-23 11:58] LABS: Hematocrit 42.3 % (41-53); Hemoglobin 14.2 g/dL (13.5-17.5); Mean Corpuscular HGB Conc 33.5 % (30-36); Mean Corpuscular Hemoglobin 30.2 PG (26-34); Mean Corpuscular Volume 90.4 fL (80-100); Platelet Count 209 X10^3/uL (150-400); Red Blood Cell Count 4.68 X10^6/uL (4.5-5.9); Red Cell Distribution Width 13.9 % (11.6-14.8); White Blood Cell Count 8.2 X10^3/uL (4.5-11.0)
[2023-07-23 12:28] LABS: Alanine Aminotransferase 33 IU/L (<50); Albumin 4.4 g/dL (3.5-5.0); Albumin Globulin Ratio 1.3 (1.0-2.8); Alkaline Phosphatase 45 U/L (38-126); Aspartate Aminotransferase 35 IU/L (17-59); BUN Creatinine Ratio 17.2 (6-22); Bilirubin Total 1.1 mg/dL (0.2-1.3); Blood Urea Nitrogen 16 mg/dL (9-20); Calcium 9.4 mg/dL (8.4-10.2); Carbon Dioxide 26 mmol/L (22-32); Chloride 103 mmol/L (98-107); Cholesterol 134 mg/dL (140-199); Estimated Glomerular Filt Rate > 60 mL/min (>60); Globulin 3.4 g/dL (1.7-4.1); Glucose 104 mg/dL (80-110); HDL Cholesterol 50 mg/dL (40-60); HEMOLYSIS < 15 (0-50); LDL Cholesterol Calculated 57 mg/dL (<100); Potassium 5.1 mmol/L (3.4-5.1); Sodium 140 mmol/L (137-145); Total Protein 7.8 g/dL (6.3-8.2); Triglycerides 133 mg/dL (35-150)
[2023-07-23 12:58] LABS: Prostate Specific Antigen 0.719 ng/mL (0.10-4.00)
== END ==
LOC: LAB 11:03
PROVIDERS: Family Provider Internal Medicine; PCP Internal Medicine; Referring Provider Internal Medicine; Visit Provider Internal Medicine
DX: I48.0 Paroxysmal atrial fibrillation (principal); E78.2 Mixed hyperlipidemia; N40.1 Benign prostatic hyperplasia with lower urinary tract symptoms; I48.20 Chronic atrial fibrillation, unspecified; N13.8 Other obstructive and reflux uropathy
CPT/HCPCS: 36415; 80053; 80061; 84153; 85027

== ENCOUNTER → 2023-11-20 14:11 | Outpatient (CLI) | payer MEDICARE, OTHER, SELFPAY ==
--- NOTE | 2023-11-20 14:12 | DI.US.S_ITS ---
PROCEDURE: US RENAL COMPLETE INDICATIONS: kidney cyst TECHNIQUE: Real-time scanning was performed of the kidneys and bladder, with image documentation. COMPARISON: [facility], CT, CT IVP A/P W/WO, 02/06/2022, 9:21. FINDINGS: Kidneys: Kidneys are normal in size. Right kidney measures 11.9 cm long; left kidney measures 11.3 cm long. Right renal cortical thickness is 1.1 cm; left renal cortical thickness is 1.1 cm. Renal cortical echotexture is normal. No hydronephrosis or nephrolithiasis. No suspicious solid mass lesions. Benign, anechoic, non complex renal cyst on the medial margin of the right kidney measuring 2.4 x 2.3 x 2.6 cm. Bladder: Nondistended. Miscellaneous: No free pelvic fluid. IMPRESSION: Benign, anechoic right renal cyst based on today's examination Dictated by: Seth Ornelas M.D. on 11/20/2023 at 15:17 Approved by: Seth Ornelas M.D. on 11/20/2023 at 15:19
== END ==
PROVIDERS: Family Provider Internal Medicine; PCP Internal Medicine; Referring Provider Internal Medicine; Visit Provider Internal Medicine
DX: N28.1 Cyst of kidney, acquired (principal)
CPT/HCPCS: 76770

== ENCOUNTER → 2024-07-29 08:59 | Outpatient (CLI) | payer MEDICARE, OTHER, SELFPAY ==
[2024-07-29 09:47] LABS: Hematocrit 43.9 % (41-53); Hemoglobin 14.5 g/dL (13.5-17.5); Mean Corpuscular Hemoglobin 30.4 PG (26-34); Mean Corpuscular Volume 92.1 fL (80-100); Platelet Count 199 X10^3/uL (150-400); Red Blood Cell Count 4.77 X10^6/uL (4.5-5.9); Red Cell Distribution Width 14.3 % (11.6-14.8); White Blood Cell Count 7.5 X10^3/uL (4.5-11.0)
[2024-07-29 10:05] LABS: Alanine Aminotransferase 52 IU/L (<50); Albumin 4.7 g/dL (3.5-5.0); Albumin Globulin Ratio 1.6 (1.0-2.8); Alkaline Phosphatase 51 U/L (38-126); Aspartate Aminotransferase 46 IU/L (17-59); BUN Creatinine Ratio 18.6 (6-22); Blood Urea Nitrogen 16 mg/dL (9-20); Calcium 9.5 mg/dL (8.4-10.2); Carbon Dioxide 24 mmol/L (22-32); Chloride 107 mmol/L (98-107); Cholesterol 141 mg/dL (140-199); Estimated Glomerular Filt Rate > 60 mL/min (>60); Glucose 103 mg/dL (80-110); HDL Cholesterol 61 mg/dL (40-60); HEMOLYSIS < 15 (0-50); LDL Cholesterol Calculated 62 mg/dL (<100); Potassium 4.9 mmol/L (3.4-5.1); Sodium 141 mmol/L (137-145); Total Protein 7.7 g/dL (6.3-8.2); Triglycerides 91 mg/dL (35-150)
[2024-07-29 10:35] LABS: Prostate Specific Antigen 0.679 ng/mL (0.10-4.00)
== END ==
PROVIDERS: Family Provider Internal Medicine; PCP Internal Medicine; Referring Provider Internal Medicine; Visit Provider Internal Medicine
DX: N13.8 Other obstructive and reflux uropathy (principal); E78.2 Mixed hyperlipidemia; N40.1 Benign prostatic hyperplasia with lower urinary tract symptoms; I48.20 Chronic atrial fibrillation, unspecified
CPT/HCPCS: 36415; 80053; 80061; 84153; 85027

== ENCOUNTER → 2024-08-26 14:12 | Outpatient (CLI) | payer MEDICARE, OTHER, SELFPAY ==
--- NOTE | 2024-08-26 14:14 | DI.RAD.S_ITS ---
PROCEDURE: XR CHEST 2V INDICATIONS: cough TECHNIQUE: 2 views of the chest were acquired. COMPARISON: [facility], , CHEST 1 VIEW, 11/22/2016, 23:41. FINDINGS: Surgical changes and devices: None. Lungs and pleura: There is moderate diffuse prominence of pulmonary vasculature. Lungs are otherwise clear. No pleural effusions or pneumothorax. Mediastinum: Mediastinal contours are normal. Heart size is normal. Bones and chest wall: No suspicious bony abnormalities. Soft tissues appear unremarkable. IMPRESSION: No acute cardiopulmonary abnormality is seen. Moderate diffuse prominence of the pulmonary vasculature noted. Dictated by: Víctor Garza M.D. on 08/27/2024 at 2:01 Approved by: Víctor Garza M.D. on 08/27/2024 at 2:01
== END ==
PROVIDERS: Family Provider Internal Medicine; PCP Internal Medicine; Referring Provider Internal Medicine; Visit Provider Internal Medicine
DX: J20.9 Acute bronchitis, unspecified (principal)
CPT/HCPCS: 71046